=== PATIENT | female | born 1950 | race Caucasian/White ===

== ENCOUNTER → 2016-07-02 | Outpatient (CLI) | payer OTHER ==
[~2016-07-02] VITALS: Ht 167.6 cm; Wt 85.0 kg
[~2016-07-02] MED LIST: ARMOUR THYROID60 M1 PO; ASPIRIN325 PO; BACLOFEN 10MG T10 MG PO; CELEBREX 200 M200 M1 PO; FLEXERIL PO; IMITREX 50 MG T50 MG PO; INDERAL40 MG PO; LIPITOR 20 MG T20 M1 PO; MACROBID 100 M100 M3 PO; METFORMIN HCL500 MG PO; RESTORIL15 MG PO; UNICOMPLEX M TA1 TA1 PO; ZANTAC 150MG T150 MG PO; ZOLOFT100 MG PO; ZYRTEC10 M2 PO
--- NOTE | ~2016-07-02 | HPC ---
[facility] [place] [address] PAIN MANAGEMENT CONSULTATION Name: ADE HADDAD Room #: REG KANIKA Coco#: [id number] Admission: 07/02/16 Attend Phys: Hugo Garcia MD Discharge: Date of : 54 Report #: [id number] THIS REPORT FOR: //name// CC: NONI Chew DATE OF SERVICE: 07/02/2016 CHIEF COMPLAINT: The pain was better for a number of months. It has slowly returned in the back. FOLLOWUP HISTORY: The patient is a 65-year-old female who has been seen in the pain clinic because of myofascial pain involving the low back. She has undergone trigger point injections in the past and gleaned significant benefit from these. Her pain was well under control for a number of months. She works and sits at a desk using a computer. Over the last few weeks, she has noted some worsening of her pain with some recurrence of pain and discomfort with pain that continues to make sitting problematic engaging in activities of daily living problematic and limits her ability to perform her job. At this juncture, she would like to undergo another trigger point injection given that she had greater than 50% improvement for a number of months. PHYSICAL EXAMINATION: Blood pressure 139/76, pulse 99, respiratory rate 20, room air saturation is 92%. The patient has pain and discomfort in the left and right posterior superior iliac spine area. Palpation of these areas reproduces the patient's pain and discomfort. She rates her pain as an 8/10 while sitting today as well as with palpation of the trigger points. IMPRESSION: Myofascial pain involving the low back area, left and right posterior superior iliac spine areas and regarding the gluteus karlene. RECOMMENDATIONS: We will proceed with treatment to this area. Risks and benefits of the procedure were again reviewed and the patient elects to proceed. PROCEDURE NOTE: The patient was placed in the standing position. The back was sterilely prepped with Betadine on the left and right side. Bupivacaine 0.25% was injected into the left and into the right posterior superior iliac spine areas. Both of these areas were sensitive to palpation and this reproduced her discomfort. This was in the area of the gluteus karlene. After the left posterior superior iliac spine area was sterilely prepped with alcohol and chlorhexidine solution, a 25-gauge needle was then advanced into the area and reproduced her discomfort. A total of 10 mL of 0.5% bupivacaine and 80 mg Depo-Medrol was injected. The contralateral side was treated in the like fashion and a 25-gauge needle was advanced into this area. A total of 10 mL of 0.5% bupivacaine and 80 mg of Depo-Medrol was injected. The patient noticed [address] [address] PAIN MANAGEMENT CONSULTATION Name: ADE HADDAD Room #: REG KANIKA Sepulveda#: [id number] Admission: 07/02/16 Attend Phys: Hugo Garcia MD Discharge: Date of : 54 Report #: [id number] that her pain decreased from 8 to 2 at the time of discharge. She will follow up in the future as needed. We would like to thank you for letting us participate in her care. We hope she continues to improve. A script for Flexeril 10 mg 1 p.o. t.i.d. has been written. By: [id number] Hugo Garcia MD /nt
[2016-07-02 09:16] VITALS: BP 139/76
== END | disposition home or self-care (01) ==
LOC: PAIN 07:08
DX: M79.1 Myalgia (principal)